=== PATIENT | female | born 1975 | race Caucasian/White ===

== ENCOUNTER 2020-10-29 18:08 | Inpatient (IN) ==
[2020-10-29 19:54] LABS: Bilirubin,Urine Negative (Negative); Blood,Urine Negative (Negative); Clarity,Urine Clear (Clear); Color,Urine Yellow (Yellow); Glucose,Urine (UA) Normal (Normal); Ketones,Urine Negative (Negative); Leukocyte Esterase,Urine Negative (Negative); Nitrite,Urine Negative (Negative); PH,Urine 5.5 pH Units (5.0-8.0); Protein,Urine Trace mg/dL (Neg-Trace); Specific Gravity,Urine > 1.030 (1.010-1.025)
[2020-10-29 20:08] LABS: Basophils % 0.6 %; Eosinophils % 0.3 %; Hematocrit 37.3 % (35.3-44.9); Hemoglobin 10.9 g/dL (11.5-15.4); Immature Granulocytes % 0.1 % (0-4); Lymphocytes # 2.3 K/mcL (0.6-4.6); Lymphocytes % 34.5 %; Mean Corpuscular HGB Conc 29.2 g/dL (31.6-35.5); Mean Corpuscular Hemoglobin 25.6 pg (28.0-33.3); Mean Corpuscular Volume 87.8 fL (83.0-100.0); Mean Platelet Volume 11.2 fL (9.4-12.4); Monocytes # 0.5 K/mcL (0.0-1.3); Monocytes % 7.1 %; Neutrophils # 3.9 K/mcL (1.6-8.9); Platelet Count 172 K/mcL (140-400); Red Blood Count 4.25 M/mcL (3.82-4.97); Red Cell Distribution Width 17.2 % (11.5-14.5); Segmented Neutrophils % 57.4 %; White Blood Count 6.8 K/mcL (4.3-11.1)
[2020-10-29 20:18] LABS: Estimated Average Glucose 117 mg/dl; Hemoglobin A1C 5.7 %
[2020-10-29 20:20] LABS: Amphetamine Screen,Urine Positive ng/mL (Cutoff=1000); Barbiturate Screen,Urine Negative ng/mL (Cutoff=200); Benzodiazepines Screen,Urine Positive ng/mL (Cutoff=200); Cannabinoid Screen,Urine Negative ng/mL (Cutoff = 50); Cocaine Screen,Urine Negative ng/mL (Cutoff= 300); Opiate Screen,Urine Positive ng/mL (Cutoff=300); Phencyclidine Screen,Urine Negative ng/mL (Cutoff=25)
[2020-10-29 20:41] LABS: BUN/Creatinine Ratio 18 (6-26); Blood Urea Nitrogen 12 mg/dL (6-20); Calcium 8.6 mg/dL (8.6-10.3); Carbon Dioxide 15 mEq/L (23-29); Chloride 107 mEq/L (98-107); Cholesterol 103 mg/dL (< 200); Glucose 74 mg/dL (70-105); HDL Cholesterol 34 mg/dL (40-59); Osmolality,Calculated 280 (280-300); Salicylate < 2.5 mg/dL (15.0-30.0); Sodium 136 mEq/L (136-145); eGFR For African Americans > 60 (> 60); eGFR For Non-African Americans > 60 (> 60)
[2020-10-29 20:58] LABS: Acetaminophen < 10 mcg/mL (10-20); Ethanol < 10 mg/dL (Less than 10); LDL Cholesterol,Calculated 56 mg/dL (< 100); Triglycerides 63 mg/dL (< 150)
[2020-10-30 00:25] LABS: Adenovirus Not Detected (Not Detect); Bordetella Pertussis Not Detected (Not Detect); Chlamydophila pneumoniae Not Detected (Not Detect); Coronavirus 229E Not Detected (Not Detect); Coronavirus HKU1 Not Detected (Not Detect); Coronavirus NL63 Not Detected (Not Detect); Coronavirus OC43 Not Detected (Not Detect); Human Metapneumovirus Not Detected (Not Detect); Human Rhinovirus/Enterovirus Not Detected (Not Detect); Influenza A Subtype 2009 H1 Not Detected (Not Detect); Influenza B Not Detected (Not Detect); Mycoplasma pneumoniae Not Detected (Not Detect); Parainfluenza Virus 1 Not Detected (Not Detect); Parainfluenza Virus 2 Not Detected (Not Detect); Parainfluenza Virus 3 Not Detected (Not Detect); Parainfluenza Virus 4 Not Detected (Not Detect); Respiratory Syncytial Virus Not Detected (Not Detect); SARS-CoV-2 Not Detected (Not Detect)
[2020-10-30] MEDS ORDERED: Haloperidol Lactate 5 MG/ML VIAL IM PRN (00:45)
[2020-10-30] MEDS ORDERED: *HR* LORazepam 1 MG TABLET PO PRN (00:45)
[2020-10-30] MEDS ORDERED: traZODone 50 MG TABLET PO PRN (00:45)
[2020-10-30] MEDS ORDERED: *HR* LORazepam 2 MG/ML VIAL IM PRN (00:45)
[2020-10-30] MEDS ORDERED: haloperidoL 5 MG TABLET PO PRN (00:45)
[2020-10-30] MEDS: Acetaminophen 325 MG TABLET PO PRN ×3 (06:05→20:09)
[2020-10-30] MEDS: hydrOXYzine pamoate 25 MG CAPSULE PO PRN ×4 (06:05→20:09)
[2020-10-30] MEDS ORDERED: MOM Conc 10 ML UD.LIQ PO PRN (08:20)
[2020-10-30] MEDS ORDERED: Mag Hydrox/Al Hydrox/Simeth 30 ML UDC PO PRN (08:20)
[2020-10-30] MEDS ORDERED: QUEtiapine Fumarate 25 MG TABLET PO PRN (09:38)
[2020-10-30] MEDS: cloNIDine HCL 0.1 MG TABLET PO PRN ×2 (10:02→18:35)
[2020-10-30] MEDS: Ibuprofen 600 MG TABLET PO PRN (13:36)
[2020-10-30] MEDS ORDERED: QUEtiapine Fumarate 25 MG TABLET PO SCH (21:00)
[2020-10-30] MEDS ORDERED: rOPINIRole 1 MG TABLET PO ONE (23:15)
[2020-10-31] MEDS: Ibuprofen 600 MG TABLET PO PRN (10:10)
[2020-10-31] MEDS: cloNIDine HCL 0.1 MG TABLET PO PRN (10:11)
[2020-10-31 10:40] VITALS: BP 96/59; PULSE 105; TEMP 99.8; O2SAT 99
[2020-10-31] MEDS ORDERED: rOPINIRole 1 MG TABLET PO ONE (22:50)
== END 2020-10-31 13:00 | disposition home or self-care (01) | DRG 885 ==
LOC: EMEROOARM 18:08 → 1ANU 10-30 00:52
PROVIDERS: ADMIT Psychiatry & Neurology Psychiatry; ATTEND Psychiatry & Neurology Psychiatry